=== PATIENT | male | born 1960 | race Caucasian/White ===

== ENCOUNTER 2023-10-19 15:05 | Outpatient (CLI) | payer BC | END 2023-10-19 15:06 | disposition home or self-care (01) | LOC: BICCT 15:05 | PROVIDERS: ATTEND Internal Medicine Gastroenterology | DX: C18.9 Malignant neoplasm of colon, unspecified (principal); N20.0 Calculus of kidney; K76.9 Liver disease, unspecified; K63.89 Other specified diseases of intestine; N32.89 Other specified disorders of bladder | CPT/HCPCS: 71260; 74177; 82565 ==